=== PATIENT | male | born 1995 | race American Indian/Alaskan Native ===

== ENCOUNTER 2017-11-04 15:03 | Emergency (ER) | payer SELFPAY ==
--- NOTE | 2017-11-04 17:12 | Emergency Department Report ---
ED General Adult HPI - General Chief complaint: Abdominal Pain Stated complaint: RIGHT FLANK PAIN Time Seen by Provider: 11/04/17 17:06 Source: patient Mode of arrival: Ambulatory Limitations: No Limitations - History of Present Illness Initial comments: This is a 21-year-old -[place] male presents with right flank pain for 3 days. Patient has a history of sickle cell disease. He reports symptoms are similar to when he is in sickle cell crisis. He has been taking Advil and increase fluid intake with no improvement of symptoms. Patient reports it is very painful to take deep breaths and uncomfortable to lay on the right side. Patient reports pain is at times sharp, stabbing, intermittent, and 10 out of 10 on pain scale at times. Currently pain is 4 out of 10 on scale and achy. He is currently in pain 8 out of 10 on pain scale. Denies fever, nausea or vomiting, shortness of breath, and abdominal pain. -: days(s) (3 days) Location: abdomen, right Radiation: non-radiation Severity scale (0 -10): 10 Quality: stabbing, sharp Consistency: intermittent Improves with: none Worsens with: other (deep breaths) Associated Symptoms: denies other symptoms Treatments Prior to Arrival: NSAID - Related Data Previous Rx's Medication Instructions Recorded Last Taken Type Azithromycin [Zithromax Z-MYNOR] 250 mg PO DAILY #6 tablet 11/04/17 Unknown Rx Fluticasone [Flonase] 1 spray NS QDAY #1 bottle 11/04/17 Unknown Rx Ibuprofen [Motrin 800 MG tab] 800 mg PO Q8HR PRN #20 tablet 11/04/17 Unknown Rx traMADol [Ultram 50 MG tab] 50 mg PO Q6HR PRN #12 tablet 11/04/17 Unknown Rx Allergies Allergy/AdvReac Type Severity Reaction Status Date / Time No Known Allergies Allergy Unverified 11/04/17 18:38 ED Review of Systems ROS: Stated complaint: RIGHT FLANK PAIN Other details as noted in HPI Constitutional: denies: chills, fever Respiratory: denies: cough, shortness of breath, wheezing Cardiovascular: denies: chest pain, palpitations Gastrointestinal: abdominal pain (right flank pain). denies: nausea, vomiting, diarrhea Musculoskeletal: denies: back pain, joint swelling, arthralgia Skin: denies: rash, lesions Neurological: denies: headache, weakness, numbness, paresthesias Psychiatric: denies: anxiety, depression ED Past Medical Hx - Past Medical History Previous Medical History?: Yes Hx Sickle Cell Disease: Yes - Surgical History Past Surgical History?: Yes Additional Surgical History: enlarged kidney in childhood had surgery on it but doesn't know what they did - Social History Smoking Status: Current Every Day Smoker Substance Use Type: Alcohol, Marijuana - Medications Home Medications: Home Medications Medication Instructions Recorded Confirmed Last Taken Type Azithromycin [Zithromax Z-MYNOR] 250 mg PO DAILY #6 tablet 11/04/17 Unknown Rx Fluticasone [Flonase] 1 spray NS QDAY #1 bottle 11/04/17 Unknown Rx Ibuprofen [Motrin 800 MG tab] 800 mg PO Q8HR PRN #20 tablet 11/04/17 Unknown Rx traMADol [Ultram 50 MG tab] 50 mg PO Q6HR PRN #12 tablet 11/04/17 Unknown Rx ED Physical Exam - General Limitations: No Limitations General appearance: alert, in no apparent distress - Respiratory Respiratory exam: Present: normal lung sounds bilaterally. Absent: respiratory distress, wheezes, rales, rhonchi, stridor, chest wall tenderness, accessory muscle use - Cardiovascular Cardiovascular Exam: Present: regular rate, normal rhythm, normal heart sounds. Absent: systolic murmur, diastolic murmur, rubs, gallop - GI/Abdominal GI/Abdominal exam: Present: soft, tenderness (right lateral flank tenderness), normal bowel sounds. Absent: distended, guarding, rebound, rigid, organomegaly , mass - Back Exam Back exam: Present: normal inspection - Neurological Exam Neurological exam: Present: alert, oriented X3 - Psychiatric Psychiatric exam: Present: normal affect, normal mood - Skin Skin exam: Present: warm, dry, intact, normal color. Absent: rash ED Course Vital Signs 11/04/17 11/04/17 15:27 19:34 Temperature 98.5 F 98.6 F Pulse Rate 81 70 Respiratory 16 20 Rate Blood Pressure 118/70 Blood Pressure 122/66 [Left] O2 Sat by Pulse 99 99 Oximetry ED Medical Decision Making - Lab Data Result diagrams: 11/04/17 17:13 11/04/17 17:13 - Radiology Data Radiology results: report reviewed EXAM: XR CHEST ROUTINE 2V HISTORY: chest pain with deep breaths, Hx of sickle cell TECHNIQUE: 2 view examination of the chest PRIORS: None FINDINGS: Nonspecific patchy and consolidated opacity is noted in the lateral right CP angle region, possibly the lateral segment of the right middle lobe. This may reflect atelectasis, edema, infarct, or pneumonitis. No definite evidence of pleural effusion based on the lateral view. No pneumothorax. Clear left lung. No acute displaced fracture. Normal cardiac silhouette size without vascular congestion Upper abdominal surgical clips may reflect prior cholecystectomy. IMPRESSION: Lateral segment right middle lobe region patchy and consolidated opacity may be atelectasis, edema, or pneumonitis. Differential includes pulmonary infarct given history of sickle cell disease - Medical Decision Making This is a 21 y.o. male with right flank pain for 3 days. Patient is stable and was examined by me. Vitals normal. Obtained CBC, CMP, reticulocyte, and UA. All labs are remarkable, reticulocyte 2.19. Chest xray has been obtained and dictated by radiologist. Lateral segment right middle lobe region patchy and consolidated opacity may be atelectasis, edema, or pneumonitis. Differential includes pulmonary infarct given history of sickle cell disease. Patient notified of x-ray results. Start Z-mynor, flonase, tramadol, and ibuprofen. Instructed to increase fluid intake. Patient does not seem toxic or ill in appearance. No acute signs of distress noted. He agrees to the ED plan of care to treat outpatient. No further questions noted. Discharged home. Follow up with Primary Care Provider in 24-48 hours. Critical care attestation.: If time is entered above; I have spent that time in minutes in the direct care of this critically ill patient, excluding procedure time. ED Disposition Clinical Impression: Right flank pain Pneumonia Qualifiers: Pneumonia type: due to unspecified organism Laterality: right Lung location: middle lobe of lung Qualified Code(s): J18.1 - Lobar pneumonia, unspecified organism Disposition: DC- TO HOME OR SELFCARE Is pt being admited?: No Does the pt Need Aspirin: No Condition: Stable Instructions: Bacterial Pneumonia (ED) Additional Instructions: Complete full course of medication as prescribed. Follow up with [facility] in 48-72 hours. Increase fluids to prevent dehydration. Avoid smoking and rest. Prescriptions: Azithromycin [Zithromax Z-MYNOR] 250 mg PO DAILY #6 tablet Fluticasone [Flonase] 1 spray NS QDAY #1 bottle Ibuprofen [Motrin 800 MG tab] 800 mg PO Q8HR PRN #20 tablet PRN Reason: Pain traMADol [Ultram 50 MG tab] 50 mg PO Q6HR PRN #12 tablet PRN Reason: Pain Referrals: [facility] [Outside] - 3-5 Days [facility] [Outside] - 3-5 Days [facility] [Outside] - 3-5 Days Forms: Work/School Release Form(ED) Time of Disposition: 19:24 Print Language: CHINESE
[2017-11-04 17:37] LABS: Basophils # (Auto) 0.1 K/mm3 (0.0-0.1); Basophils % (Auto) 0.6 % (0.0-1.8); Eosinophils # (Auto) 0.3 K/mm3 (0.0-0.4); Hematocrit 40.6 % (35.5-45.6); Hemoglobin 13.7 gm/dl (11.8-15.2); Lymphocytes # (Auto) 2.4 K/mm3 (1.2-5.4); Lymphocytes % (Auto) 19.2 % (13.4-35.0); Mean Corpuscular HGB Conc 34 % (32-34); Mean Corpuscular Hemoglobin 26 pg (28-32); Mean Corpuscular Volume 77 fl (84-94); Monocytes # (Auto) 1.4 K/mm3 (0.0-0.8); Monocytes % (Auto) 10.8 % (0.0-7.3); Red Blood Count 5.26 M/mm3 (3.65-5.03); Red Cell Distribution Width 16.4 % (13.2-15.2)
[2017-11-04 17:40] LABS: Platelet Count 284 K/mm3 (140-440)
--- NOTE | 2017-11-04 17:40 | XRay Report ---
FINAL REPORT EXAM: XR CHEST ROUTINE 2V HISTORY: chest pain with deep breaths, Hx of sickle cell TECHNIQUE: 2 view examination of the chest PRIORS: None FINDINGS: Nonspecific patchy and consolidated opacity is noted in the lateral right CP angle region, possibly the lateral segment of the right middle lobe. This may reflect atelectasis, edema, infarct, or pneumonitis. No definite evidence of pleural effusion based on the lateral view. No pneumothorax. Clear left lung. No acute displaced fracture. Normal cardiac silhouette size without vascular congestion Upper abdominal surgical clips may reflect prior cholecystectomy. IMPRESSION: Lateral segment right middle lobe region patchy and consolidated opacity may be atelectasis, edema, or pneumonitis. Differential includes pulmonary infarct given history of sickle cell disease
[2017-11-04 17:45] LABS: Alanine Aminotransferase 14 units/L (7-56); Albumin 4.4 g/dL (3.9-5); BUN/Creatinine Ratio 26; Blood Urea Nitrogen 13 mg/dL (9-20); Calcium 9.4 mg/dL (8.4-10.2); Hemolysis Index 5
[2017-11-04 19:25] LABS: Bilirubin,Urine NEG (Negative); Blood,Urine NEG (Negative); Color,Urine Yellow (Yellow); WBC,Urine < 1.0 /HPF (0.0-6.0)
[2017-11-04 19:37] VITALS: BP 122/66
== END 2017-11-04 19:34 | disposition home or self-care (01) ==
LOC: ED 15:03
DX: R10.9 Unspecified abdominal pain (principal); J18.9 Pneumonia, unspecified organism; D57.1 Sickle-cell disease without crisis; F17.200 Nicotine dependence, unspecified, uncomplicated; F12.10 Cannabis abuse, uncomplicated
CPT/HCPCS: 36415; 71046; 80053; 81001; 85025; 85045